=== PATIENT | male | born 2000 | race Caucasian/White ===

== ENCOUNTER 2019-12-21 23:19 | Emergency (ER) | payer MEDICAID, OTHER ==
[~2019-12-21] VITALS: Ht 177.8 cm; Wt 65.9 kg
[2019-12-21] MEDS ORDERED: TRAZ150T90 PO (23:45)
[2019-12-21] MEDS ORDERED: CLONI1TA PO (23:45)
[2019-12-21] MEDS ORDERED: ARIP1TAB6 PO (23:45)
[2019-12-22 00:50] LABS: BASO % 0.3 % (0.0-1.0); EOS # 0.1 10^3/uL (0.0-0.5); EOS % 1.6 % (0.0-3.0); HEMATOCRIT 43.6 % (42.0-52.0); HEMOGLOBIN 14.4 g/dl (13.5-17.5); LYMPH # 1.8 10^3/uL (1.5-5.0); LYMPH % 26.8 % (24.0-44.0); MEAN CORPUSCULAR HEMOGLOBIN 29.5 pg (27.0-33.0); MEAN CORPUSCULAR VOLUME 89.3 fl (80.0-96.0); MONO # 0.6 10^3/uL (0.0-0.8); MONO % 9.2 % (0.0-5.0); NEUTROPHILS # 4.2 10^3/uL (1.5-8.5); PLATELET COUNT, AUTOMATED 196 10^3/uL (150-450); RED BLOOD COUNT 4.88 10^6/uL (4.30-6.10); WHITE BLOOD COUNT 6.8 10^3/uL (4.0-10.0)
[2019-12-22 01:19] LABS: BLOOD UREA NITROGEN 12 MG/DL (7-18); CALCIUM LEVEL 9.3 MG/DL (8.5-10.1); CARBON DIOXIDE LEVEL 31 MEQ/L (21-32); CHLORIDE LEVEL 104 MEQ/L (98-107); CREATININE FOR GFR 0.98 MG/DL (0.70-1.30); ETHYL ALCOHOL (ETHANOL) 0.003 % (0.000-0.010); GLOMERULAR FILTRATION RATE > 60.0 (>60); GLUCOSE, FASTING 87 MG/DL (70-100); MAGNESIUM LEVEL 2.2 MG/DL (1.8-2.4); POTASSIUM SERUM 3.2 MEQ/L (3.5-5.1); SODIUM LEVEL 140 MEQ/L (136-145)
[2019-12-22] MEDS ORDERED: NS 1,000 ML IV ONE (01:30)
[2019-12-22 01:40] LABS: AMPHETAMINES LEVEL URINE NEGATIVE (NEGATIVE); BARBITURATES URINE NEGATIVE (NEGATIVE); BENZODIAZEPINES URINE NEGATIVE (NEGATIVE); CANNABINOIDS URINE NEGATIVE (NEGATIVE); COCAINE METABOLITE URINE NEGATIVE (NEGATIVE); METHADONE URINE NEGATIVE (NEGATIVE); OPIATES URINE NEGATIVE (NEGATIVE); PHENCYCLIDINE URINE NEGATIVE (NEGATIVE)
[2019-12-22] MEDS ORDERED: POTASSIUM CHLORIDE 10 MEQ SR TABLET PO ONE (02:45)
[2019-12-22 03:00] VITALS: BP 108/63
--- NOTE | 2019-12-22 05:50 | ECGEPIP ---
[facility] - ED Test Date: 2019-12-22 Pat Name: ANICETO GAYTAN Department: Room: - Gender: Male Body Sander: MAUDE : 2000 Requested By: OMERO Watkins Order Number: [id number] Reading MD: Robert Lara Measurements Intervals [place] Rate: 61 P: 83 WI: 197 QRS: 117 QRSD: 107 T: 81 QT: 418 QTc: 424 Interpretive Statements SINUS RHYTHM RIGHT AXIS DEVIATION INCOMPLETE RIGHT BUNDLE BRANCH BLOCK NONSPECIFIC ST & T-WAVE ABNORMALITY NO PRIORS FOR COMPARISON Electronically Signed on 12-22-2019 5:50:16 EST by Robert Lara
== END 2019-12-22 03:14 | disposition home or self-care (01) ==
LOC: M ED 23:19
DX: R55 Syncope and collapse (principal); E87.6 Hypokalemia; F17.210 Nicotine dependence, cigarettes, uncomplicated; Z79.899 Other long term (current) drug therapy
CPT/HCPCS: 80047; 80048; 80307; 83735; 84443; 85025; 93005; 93041; 94760; 96360; 99285; G0480